=== PATIENT | female | born 1970 | race Asian ===

== ENCOUNTER 2023-05-21 11:55 | Inpatient (IN) | payer OTHER ==
[~2023-05-21] VITALS: Ht 162.6 cm; Wt 84.0 kg
[2023-05-21] MEDS ORDERED: PROP20TA18 PO (12:19)
[2023-05-21] MEDS ORDERED: AMLO5TAB66 PO (12:19)
[2023-05-21] MEDS ORDERED: LISI10TA24 PO (12:19)
[2023-05-21] MEDS ORDERED: ROSU20TA73 PO (12:19)
[2023-05-21 12:44] LABS: BASOPHILS % (AUTO) 1.2 % (0.0-2.0); EOSINOPHILS % (AUTO) 4.4 % (1.0-6.0); HEMATOCRIT 27.2 % (36-46); HEMOGLOBIN 9.1 g/dL (12.0-16.0); LYMPHOCYTES # (AUTO) 1.1 K/uL (1.0-4.8); LYMPHOCYTES % (AUTO) 17.2 % (22.0-44.0); MEAN CORPUSCULAR HEMOGLOBIN 30.7 pg (26.0-34.0); MEAN CORPUSCULAR HGB CONC 33.5 G/dL (31.0-37.0); MEAN CORPUSCULAR VOLUME 92 fL (80-100); MONOCYTES # (AUTO) 0.6 K/uL (0.1-1.0); MONOCYTES % (AUTO) 8.9 % (2.0-9.0); NEUTROPHILS # (AUTO) 4.5 K/uL (1.8-7.7); NEUTROPHILS % (AUTO) 68.3 % (40.0-70.0); PLATELET COUNT (AUTO) 274 K/uL (150-450); RED BLOOD CELL COUNT(AUTO) 2.97 MIL/uL (4.00-5.20); RED CELL DISTRIBUTION WIDTH 13.5 % (11.5-14.5); WHITE BLOOD COUNT (AUTO) 6.6 K/uL (4.5-11.0)
[2023-05-21 12:54] LABS: CALCIUM, TOTAL 9.6 mg/dL (8.8-10.5); POTASSIUM 5.9 mmol/L (3.5-5.1)
[2023-05-21 13:01] LABS: ALBUMIN 3.7 g/dL (3.4-5.0); BILIRUBIN,TOTAL 0.3 mg/dL (0.1-1.0); TOTAL PROTEIN, SERUM 7.8 g/dL (6.4-8.2)
[2023-05-21 16:15] VITALS: PULSE 72; RESP 18; O2SAT 98
[2023-05-21] MEDS: ALBUTEROL SULFATE 2.5 MG/0.5 ML 5 ML NEB SOLUTION NEB ONE (16:15)
[2023-05-21 16:21] LABS: MAGNESIUM 2.4 mg/dL (1.80-2.40)
[2023-05-21] MEDS: SODIUM CHLORIDE 0.9% 1,000 ML IV ONE (16:51)
[2023-05-21 17:11] VITALS: PULSE 74; RESP 18; O2SAT 98
[2023-05-21] MEDS ORDERED: 0.9% SODIUM CHLORIDE 10 ML SYRINGE IVP PRN (19:00)
[2023-05-21] MEDS ORDERED: ONDANSETRON HCL 4 MG/2 ML VIAL IVP PRN ×2 (19:00→19:15)
[2023-05-21] MEDS ORDERED: ACETAMINOPHEN 325 MG TABLET PO PRN ×2 (19:00→19:15)
[2023-05-21] MEDS ORDERED: ZOLPIDEM TARTRATE 5 MG TABLET PO PRN (19:15)
[2023-05-21] MEDS: SODIUM ZIRCONIUM CYCLOSILICATE 5 GM POWDER PACKET PO ONE (19:16)
[2023-05-21 19:21] LABS: COVID AG,FIA SOURCE NASAL SWAB
[2023-05-21 19:44] LABS: SARS-COV2 (COVID) ANTIGEN,FIA Negative (Negative)
[2023-05-21] MEDS: DOCUSATE SODIUM 100 MG CAPSULE PO SCH (20:24)
[2023-05-21] MEDS: HEPARIN SODIUM,PORCINE 5,000 UNITS/ML VIAL SQ SCH (23:46)
[2023-05-22] VITALS (8 sets, daily range): BP systolic 111–145; BP diastolic 65–86; PULSE 66–88; RESP 17–20; TEMP 97.7–98.2
[2023-05-22] MEDS: AmLODIPine BESYLATE 10 MG TABLET PO SCH (09:17)
[2023-05-22] MEDS: FAMOTIDINE 20 MG TABLET PO SCH (09:17)
[2023-05-22 10:58] LABS: CALCIUM, TOTAL 9.3 mg/dL (8.8-10.5); CREATININE 3.71 mg/dL (0.60-1.30); PHOSPHORUS 5.2 mg/dL (2.5-4.9); POTASSIUM 5.4 mmol/L (3.5-5.1)
[2023-05-22] MEDS: SODIUM ZIRCONIUM CYCLOSILICATE 5 GM POWDER PACKET PO SCH (12:05)
[2023-05-22 12:11] LABS: APPEARANCE,URINE CLEAR (CLEAR); BILIRUBIN,URINE NEGATIVE (NEGATIVE); COLOR,URINE COLORLESS (YELLOW); GLUCOSE, URINE (UA) NEGATIVE (NEGATIVE); KETONES,URINE NEGATIVE (NEGATIVE); LEUKOCYTE ESTERASE ,URINE TRACE (NEGATIVE); NITRATE,URINE NEGATIVE (NEGATIVE); OCCULT BLOOD,URINE MODERATE (NEGATIVE); PROTEIN,URINE 100-200,SEE CONFIRM mg/dL (NEGATIVE); SPECIFIC GRAVITIY, URINE 1.009 (1.003-1.030); UROBILINOGEN,URINE <=1.0 mg/dL (<=1.0)
[2023-05-22 12:20] LABS: MAGNESIUM,URINE RANDOM 4.1 mg/dL (1.0-13.0)
[2023-05-22] MEDS: SODIUM BICARBONATE 75 MEQ in SODIUM CHLORIDE 0.45% 1,000 ML IV ONE (12:28)
[2023-05-22 12:42] LABS: SULFOSALICYLIC ACID,URINE 2+ (Negative)
[2023-05-22 12:43] LABS: WBC,URINE 0-2 /HPF (0-5)
[2023-05-22 12:44] LABS: BACTERIA,URINE Moderate /HPF (None Seen); SQUAMOUS EPITHELIAL CELL,UR Moderate /LPF (None Seen)
[2023-05-23 04:11] VITALS: BP 132/64; PULSE 67; RESP 18; TEMP 98.7
[2023-05-23 07:26] LABS: CALCIUM, TOTAL 9.3 mg/dL (8.8-10.5); CREATININE 3.69 mg/dL (0.60-1.30); POTASSIUM 4.6 mmol/L (3.5-5.1)
[2023-05-23 07:27] LABS: % IRON SATURATION 46.9 % (22-44)
[2023-05-23 09:39] VITALS: BP 139/77; PULSE 79; RESP 18; TEMP 97.9
[2023-05-23 12:23] LABS: COLLECTION TIME,URINE 24 HR; SODIUM TIMED,URINE 57 mmol/L (20-110); SODIUM URINE, 24HR CALC 143 mmol/24H (40-220); TOTAL VOLUME 24HRS,URINE 2500 mL
[2023-05-23 12:31] LABS: CREATININE,URINE 42.5 mg/dL (30.0-125.0)
[2023-05-23 12:35] LABS: CREATININE,SERUM FOR CRCL 3.69 mg/dL (0.60-1.30)
[2023-05-23 13:07] LABS: HEPATITIS C AB (EIA) Non Reactive (Non Reactive)
[2023-05-23 13:07] LABS: CREATININE, URINE (mALB) 61.9 mg/dL (Not Estab.)
[2023-05-23 16:41] VITALS: BP 112/60; PULSE 75; RESP 18; TEMP 98.1
[2023-05-23 19:51] VITALS: BP 138/77; PULSE 68; RESP 18; TEMP 98.3
[2023-05-24 04:39] VITALS: BP 118/68; PULSE 72; RESP 18; TEMP 97.9
[2023-05-24 05:40] LABS: HEMOGLOBIN A1C 6.1 % (3.8-5.6)
[2023-05-24 05:57] LABS: CREATININE 3.77 mg/dL (0.60-1.30)
[2023-05-24 05:58] LABS: CALCIUM, TOTAL 9.4 mg/dL (8.8-10.5)
[2023-05-24 06:07] LABS: PARATHYROID HORMONE INTACT 115 pg/mL (15-65)
[2023-05-24 08:56] VITALS: BP 120/70; PULSE 65; RESP 16; TEMP 97.8
[2023-05-24] MEDS: DAPAGLIFLOZIN PROPANEDIOL 5 MG TABLET PO SCH (11:00)
[2023-05-24] MEDS ORDERED: DAPA5TAB PO (11:03)
[2023-05-28 07:06] LABS: ALBUMIN URINE (ELP24) 64.1 %; ALPHA-1 URINE (ELP24) 4.1 %; BETA URINE(ELP24) 10.8 %; PROTEIN,URINE 24HR 3188 mg/24 hr (30-150); TOTAL PROTEIN URINE 127.5 mg/dL (Not Estab.)
== END 2023-05-24 14:00 | disposition home or self-care (01) | DRG 640 ==
LOC: EMS 11:56 → 5S 05-22 00:57 → 6S 05-23 11:25
PROVIDERS: ADMIT Internal Medicine; ATTEND Internal Medicine
DX: E87.5 Hyperkalemia (principal); N18.6 End stage renal disease; I12.0 Hypertensive chronic kidney disease with stage 5 chronic kidney disease or end stage renal disease; N17.9 Acute kidney failure, unspecified; D63.1 Anemia in chronic kidney disease; E66.9 Obesity, unspecified; E78.5 Hyperlipidemia, unspecified; G43.109 Migraine with aura, not intractable, without status migrainosus; Z20.822 Contact with and (suspected) exposure to COVID-19; R73.03 Prediabetes; Z87.891 Personal history of nicotine dependence; Z79.899 Other long term (current) drug therapy; Z68.31 Body mass index [BMI] 31.0-31.9, adult
CPT/HCPCS: 76770; 80048; 80053; 81001; 81002; 81050; 82043; 82570; 82575; 82728; 83036; 83150; 83540; 83550; 83735; 83935; 83970; 84100; 84133; 84156; 84166; 84300; 84585; 85025; 86038; 86803; 87086; 87186; 93005; 94644; 99285; G0378; J1644; J3490; Q9967

== ENCOUNTER 2024-10-20 12:32 | Emergency (ER) | payer OTHER ==
[~2024-10-20] VITALS: Ht 162.6 cm; Wt 73.0 kg
[~2024-10-20 12:32] MED LIST: AMLO5TAB66 PO; DAPA5TAB PO; ROSU20TA98 PO
[2024-10-20 12:42] VITALS: TEMP 97.7
[2024-10-20 13:25] LABS: PLATELET COUNT (AUTO) 279 K/uL (150-450); RED BLOOD CELL COUNT(AUTO) 2.24 MIL/uL (4.00-5.20); RED CELL DISTRIBUTION WIDTH 14.7 % (11.5-14.5); WHITE BLOOD COUNT (AUTO) 5.5 K/uL (4.5-11.0)
[2024-10-20 13:31] LABS: CALCIUM, TOTAL 9.2 mg/dL (8.8-10.5); CREATININE 16.4 mg/dL (0.60-1.30); GLOMERULAR FILTR. RATE CALC 2.0 mL/min (>60); GLUCOSE,RANDOM 98.0 mg/dL (70-110); SODIUM SERUM 140.0 mmol/L (136-145); UREA NITROGEN, BLOOD 86.0 mg/dL (7-18)
[2024-10-20 14:56] VITALS: BP 146/85; PULSE 84; RESP 14; O2SAT 100
== END 2024-10-20 14:58 | disposition home or self-care (01) ==
LOC: EMS 12:32
DX: D64.9 Anemia, unspecified (principal); I12.0 Hypertensive chronic kidney disease with stage 5 chronic kidney disease or end stage renal disease; N18.6 End stage renal disease; Z99.2 Dependence on renal dialysis; Z79.899 Other long term (current) drug therapy
CPT/HCPCS: 80048; 85025; 99283